=== PATIENT | female | born 1945 | race Caucasian/White ===

== ENCOUNTER → 2016-11-23 | Outpatient (CLI) | payer OTHER ==
[~2016-11-23] VITALS: Ht 165.1 cm; Wt 89.8 kg
[~2016-11-23] MED LIST: AMBIEN 10 MG TA10 MG PO; B COMPLEX-VITA1 EACH PO; B-COMPLEX PLUS1 EACH PO; CALCIUM 600 +1 EAC2 PO; CHANTIX1 MG PO; CRANBERRY400 MG PO; CYMBALTA60 MG PO; DESYREL100 MG PO; DESYREL50 MG PO; DICLOFENAC SODI75 MG PO; DOLOPHINE HCL5 MG PO; EFFEXOR XR37.5 MG PO; ENDOCET 7.5-321 EACH PO; FISH OIL 1,001000 M2 PO; FLEXERIL PO; FOSAMAX 70 MG T70 M1 PO; FOSAMAX 70 MG T70 MG; FOSAMAX 70 MG T70 MG PO; HAIR SKIN NAIL1 EACH PO; HYDROCODON-ACE1 EAC5 PO; HYDROCODON-ACE1 EAC7 PO; HYDROCODONE-AP1 EAC6 PO; LAMICTAL 25 MG25 M1 PO; LIPITOR10 MG PO; LISINOPRIL10 MG PO; MACRODANTIN50 MG PO; MAGOX 400400 MG PO; MELATONIN3 MG PO; METHADONE HCL5 MG PO; MOBIC15 MG PO; MS CONTIN15 MG PO; NEURONTIN 300300 M1 PO; NEURONTIN 300M300 M2 PO; NITROFURANTOIN50 M4 PO; NORCO 5-325 TA1 EACH PO; OS-CAL 500+D C1 EACH PO; PERCOCET 10-321 EACH PO; PERCOCET 5-3251 EACH PO; PERCOCET PO; PREMARIN0.625 MG PO; RELAFEN750 MG PO; REQUIP 1 MG TABL1 M1 PO; TAMSULOSIN HCL0.4 MG PO; TEGRETOL XR100 MG PO; TRAZODONE 150150 M1 PO; TRILEPTAL150 MG PO; VITAMIN B-12500 MCG PO; VITAMIN C + RO500 MG PO; VITAMIN D 5050000 I1 PO; VITAMIN D1000 UNI1 PO; VITAMIN D1000 UNIT PO; VITAMIN D10000 UNIT PO; VITAMIN E400 UNIT PO; VITCB500GO PO
--- NOTE | ~2016-11-23 | HPC ---
[facility] [place] [address] PAIN MANAGEMENT CONSULTATION Name: KATHERINE HOYOS Roderick [id number] Admission: 11/23/16 Attend Phys: Korey Sal DO Discharge: Date of : 46 Report #: [id number] THIS REPORT FOR: //name// CC: Ami Sal HISTORY OF PRESENT ILLNESS: The patient is a 70-year-old female well known to the pain clinic, typically treated for neuropathic pain, bipedal neuropathy, axial back pain, chronic pain syndrome, SI joint dysfunction requiring complex medication management. She was last seen 07/31/2016, continued on baseline medication. Last urine drug screen 12/16/2015 was positive for prescribed medications. She returns to pain clinic today, her pain impact score is 8/70. She has "75%" functional improvement with her current medication. She notes pain is primarily in the low back radiating into the buttocks, compatible with SI mediated pain. She rates her pain today 7 on a 0-10 visual analog scale, exacerbated with bending, vacuuming and standing, sharp chronic burning sensation. She does note medications assist with functional status. She is incidentally noting significant pruritus with erythematous rash on her back. I reconciled the medication list today, she has been on Lamotrigine (Lamictal) [address] Hwang. Of all of her medications, this is the most likely culprit, though the dose is not changed. I suggest she follow up with Dr. Hwang regarding that issue. I have continued the patient on Percocet 5/325 four a day, gabapentin 300 mg 1 in the morning, 1 at noon, 1 at midday, 2 at night and Requip 1 mg at noon and 2 at bedtime. Of note, these agents are typically associated with macular rash and pruritus. PHYSICAL EXAMINATION: Shows a 70-year-old female, BMI is 32.9 kilograms per meter squared. Vital signs stable as noted in the EMR. Rises from chair using armrest. Very tender over the SI joints. Positive Colleen test and Gaenslen's test bilaterally. Lower extremity strength is symmetric. Straight leg raise is negative. We reviewed the fact that opiate medications are being used to provide analgesia adequate to support activities of daily living, not attempting to achieve a specific pain score on the 0-10 Visual Analog Scale. The current opiate medications are providing sufficient analgesia to allow the patient to participate in activities of daily living. The patient is not exhibiting any aberrant behavior suggestive of drug diversion. The patient is not having any adverse reactions to medications. The patient is not suffering from daytime somnolence or mental acuity changes. The patient is managing opiate-induced constipation with appropriate eiph-nqr-ncuemfi agents and dietary considerations. The patient was counseled on concern for caution with operating a motor vehicle while using opiate medications. A physical exam was performed and the patient's functional status was evaluated. [address] [address] PAIN MANAGEMENT CONSULTATION Name: KATHERINE HOYOS Room #: REG ALE[facility] Avila#: [id number] Admission: 11/23/16 Attend Phys: Korey Sal DO Discharge: Date of : 46 Report #: [id number] All patients with back pain were advised against the bed rest greater than 4 days and were advised to return to normal activities. Pain score assessment was noted and the treatment plan was reviewed with the patient. All current medications, both prescribed and OTC were reviewed and reconciled on the electronic medical record. Tobacco screening was accomplished and smoking cessation was advised when indicated. BMI was noted and diet/exercise modification was recommended for all patients following outside normal parameters. I reviewed with the patient today their responsibilities to safeguard prescription medications, reviewed their responsibility to utilize medications only as prescribed by the physician. They are to seek and receive pain medications only from 1 physician group ( [facility]). They are to use 1 pharmacy and keep the clinic informed if they change pharmacies. Their responsibilities include making followup visits in a timely fashion and to avoid abrupt discontinuation of medication usage. Their responsibilities further include bringing their medications (bottles from the pharmacy with residual pills) to the visit for possible confirmation of pill counts and the patient understands it is their responsibility to submit to random drug screens to ensure both that the medications prescribed are present, and that no other controlled substances are present. All prescriptions provided today were generated electronically. 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 RECOMMENDATIONS: 1. SI joint injections under fluoroscopy today. 2. Continue baseline opiate analgesic including Percocet 5/325 up to 4 a day, taken the liberty of writing for 2 months of current medication. 3. Would continue Requip 1 mg in the afternoon and 2 at night, gabapentin 300 mg 1 tablet up to 5 times a day. 4. Follow with Dr. Hwang regarding rash and possible etiologic agent (Lamictal?). PROCEDURE NOTE: Bilateral SI joint injection under fluoroscopy. PROCEDURE NOTE: After written and informed consent was obtained including risk of infection, nerve trauma, increased pain and weakness, the patient wishes to proceed. The patient was taken to the fluoroscopy suite, placed in the prone position. The sacroiliac joint was visualized using the C-arm, turned in an oblique fashion to align the joint. The skin overlying the area was cleansed with ChloraPrep. Skin wheal with Xylocaine was raised. A 22 gauge spinal needle was inserted into the inferior aspect of the joint. A low volume extension tubing was then attached to the needle after the stylet was removed. Negative aspiration was accomplished. A 1 mL of Omnipaque was injected which [facility] [address] [place] [address] PAIN MANAGEMENT CONSULTATION Name: KATHERINE HOYOS Room #: REG [facility] [place]#: [id number] Admission: 11/23/16 Attend Phys: Korey Sal DO Discharge: Date of : 46 Report #: [id number] showed spread within the SI joint. 40 mg triamcinolone plus 2 mL of 0.5% preservative-free bupivacaine was injected into the joint. Needle was removed. Attention was then turned to the contralateral joint which was treated in an identical fashion. After both needles were removed the prep was washed off. Two Band-Aids were applied over the puncture sites. The patient was allowed to ambulate to the recovery room, monitored for an appropriate period of time, discharged in good and stable condition. By: [id number] Korey Sal DO /nt
[2016-11-23 12:51] VITALS: BP 138/74
== END ==
LOC: PAIN 06:12
DX: M53.3 Sacrococcygeal disorders, not elsewhere classified (principal); G58.8 Other specified mononeuropathies

== ENCOUNTER → 2017-01-18 | Outpatient (CLI) | payer OTHER ==
[~2017-01-18] VITALS: Ht 165.1 cm; Wt 90.7 kg
[~2017-01-18] MED LIST changes: +ANTIVERT25 MG PO
--- NOTE | ~2017-01-18 | HPC ---
[facility] [address] [place] [address] PAIN MANAGEMENT CONSULTATION Name: KATHERINE HOYOS Roderick [facility] [id number] Admission: 01/18/17 Attend Phys: Korey Sal DO Discharge: Date of : 46 Report #: [id number] THIS REPORT FOR: //name// CC: Ami Sal The patient is a 71-year-old female typically treated for axial back pain, bipedal neuropathy, component of SI mediated pain, had SI joint injections at last visit, unfortunately really nominal efficacy. She has continued with complex medication management, Percocet 7.5/325 three a day, gabapentin 300 mg 5 tablets a day, 1 t.i.d. with 2 at bedtime, and Requip 1 mg typically 1 in the morning and 2 at night. She returns to pain clinic today noting subjective pain score is 2 on a VAS. Notes; however, unfortunately the SI joint injection afforded poor relief. She is planning on traveling to [place] for a [place]. 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 PHYSICAL EXAMINATION: Shows a 71-year-old female, BMI is 33.3 kg/m2. Vital signs stable. Rises from chair using armrest. Gait is tandem. Diffuse tenderness across the low back. No discrete trigger points noted. Lower extremity strength is preserved. We reviewed the fact that opiate medications are being used to provide analgesia adequate to support activities of daily living, not attempting to achieve a specific pain score on the 0-10 Visual Analog Scale. The current opiate medications are providing sufficient analgesia to allow the patient to participate in activities of daily living. The patient is not exhibiting any aberrant behavior suggestive of drug diversion. The patient is not having any adverse reactions to medications. The patient is not suffering from daytime somnolence or mental acuity changes. The patient is managing opiate-induced constipation with appropriate mkyd-ore-pgptghv agents and dietary considerations. The patient was counseled on concern for caution with operating a motor vehicle while using opiate medications. A physical exam was performed and the patient's functional status was evaluated. All patients with back pain were advised against the bed rest greater than 4 days and were advised to return to normal activities. Pain score assessment was noted and the treatment plan was reviewed with the patient. All current medications, both prescribed and OTC were reviewed and reconciled on the electronic medical record. Tobacco screening was accomplished and smoking cessation was advised when indicated. BMI was noted and diet/exercise modification was recommended for all patients following outside normal parameters. [address] [address] PAIN MANAGEMENT CONSULTATION Name: KATHERINE HOYOS Room #: REG [facility] Avila#: [id number] Admission: 01/18/17 Attend Phys: Korey Sal DO Discharge: Date of : 46 Report #: [id number] I reviewed with the patient today their responsibilities to safeguard prescription medications, reviewed their responsibility to utilize medications only as prescribed by the physician. They are to seek and receive pain medications only from 1 physician group ( [facility]). They are to use 1 pharmacy and keep the clinic informed if they change pharmacies. Their responsibilities include making followup visits in a timely fashion and to avoid abrupt discontinuation of medication usage. Their responsibilities further include bringing their medications (bottles from the pharmacy with residual pills) to the visit for possible confirmation of pill counts and the patient understands it is their responsibility to submit to random drug screens to ensure both that the medications prescribed are present, and that no other controlled substances are present. All prescriptions provided today were generated electronically. ASSESSMENT: Lumbar radiculopathy, bipedal neuropathy, sacroiliac mediated pain, axial back pain, requiring complex medication management. RECOMMENDATIONS: Continue current medications unchanged, I have taken the liberty of writing for 2 months of current medication, followup at that time. Last urine drug screen was 12/16/2015. We will get a buccal swab at next visit. <ELECTRONICALLY SIGNED> By: Korey Sal DO 01/18/17 1427 [id number] [id number] Korey Sal DO /nt
[2017-01-18 10:46] VITALS: BP 113/81
== END | disposition home or self-care (01) ==
LOC: PAIN 07:27
DX: M54.16 Radiculopathy, lumbar region (principal); M53.3 Sacrococcygeal disorders, not elsewhere classified; G62.9 Polyneuropathy, unspecified; Z68.33 Body mass index [BMI] 33.0-33.9, adult; Z87.891 Personal history of nicotine dependence

== ENCOUNTER → 2017-01-28 | Outpatient (CLI) | payer OTHER ==
[~2017-01-28] VITALS: Ht 165.1 cm; Wt 90.1 kg
--- NOTE | ~2017-01-28 | HPC ---
[facility] [address] [place] [address] PAIN MANAGEMENT CONSULTATION Name: KATHERINE HOYOS Roderick Room #: REG [facility]#: [id number] Admission: 01/28/17 Attend Phys: Korey Sal DO Discharge: Date of : 46 Report #: [id number] THIS REPORT FOR: //name// CC: Ami Sal The patient is a pleasant 71-year-old female typically treated for axial back pain, SI joint dysfunction, lumbosacral spondylosis, neuropathic pain component. Last seen in the pain clinic 01/18/2017. She has done well with occasional SI joint injections, but it was a little confusing if it was the steroid or the local. I continued on Percocet 7.5/325 three a day at that visit, we continued gabapentin 300 mg 1 tablet 3 times a day with 2 at bedtime, ReQuip 1 mg 1 in the morning and 2 at night. Returns to pain clinic today for prior authorized left SI joint injection without steroid, diagnostic block. Incidentally buccal swab was accomplished today, no aberrant behavior suggestive for drug diversion, simply complying with opiate consent to treat contract. There are no other random studies noted in the chart. Physical exam shows a 71-year-old female, somewhat flat affect, ongoing pain in the left SI, positive Colleen test on the left. Positive Gaenslen's test. Diffuse tenderness in the left SI area. No pain with resistance to external rotation (negative piriformis). VAS score is 6-7/10. ASSESSMENT: Symptomatic sacroiliac joint dysfunction, left. DESCRIPTION OF PROCEDURE: After written informed consent was obtained, the patient was taken to fluoroscopy suite, placed in prone position. After sterile prep and drape, skin wheal was raised. A 22-gauge stylet needle was placed to contact the inferior aspect of left SI joint. A 0.5 mL of Omnipaque was injected, which highlighted the joints and followed with 1 mL of 0.5% preservative-free bupivacaine and 1 mL of 1.5% preservative-free Xylocaine. Needle was removed. The area was cleansed, Band-Aids applied. The patient monitored for an appropriate period of time as to record her VAS score hourly for the next 4 hours. I will have her call the nurse line and leave those reports. ADDENDUM: Patient called the RN phone line: reported pain score of 1/10 on discharge, but quickly had return of pain with activity; 11:30 1/10, 12:30 7/10, 13:30 6/10 and 14:30 7/10. Given that the diagnostic block was accomplished with a comination of bupivicaine and lidocaine, she should have had incremental relief for multiple hours. I believe that this is a negative diagnostic test; her initial pain relief was noted after sitting in the recliner; pain immediately returned with nominal activity (walking). We will have to look further for source of pain; lumbar radicular component? 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 Persisent multilevel llumbar spondylosis ...resulting in multilevel central spinal stenosis. There is mulitilevel mild neural foraminal stenosis." (01/29/17) vgj By: [id number] Korey Sal DO /ilya
[2017-01-28 10:32] VITALS: BP 116/60
== END ==
LOC: PAIN 06:52
DX: M53.3 Sacrococcygeal disorders, not elsewhere classified (principal); M54.5 Low back pain; M47.896 Other spondylosis, lumbar region; M79.2 Neuralgia and neuritis, unspecified; Z79.899 Other long term (current) drug therapy

== ENCOUNTER → 2017-02-11 | Outpatient (CLI) | payer OTHER ==
[~2017-02-11] VITALS: Ht 165.1 cm; Wt 90.4 kg
[~2017-02-11] MED LIST changes: +PERCOCET 7.5-31 EACH PO
--- NOTE | ~2017-02-11 | HPC ---
[facility] [place] [address] PAIN MANAGEMENT CONSULTATION Name: KATHERINE HOYOS Roderick [id number] Admission: 02/11/17 Attend Phys: Korey Sal DO Discharge: Date of : 46 Report #: [id number] THIS REPORT FOR: //name// CC: Ami Sal DATE OF SERVICE: 02/11/2017 The patient is a 71-year-old female, long known to the pain clinic. She has been treated for SI-mediated pain, lumbosacral spondylosis, neuropathic pain requiring complex medication management status post lumbar decompressive laminectomy. She returns to pain clinic today, she was seen for prolonged visit today, from 9:00 a.m. to 9:25. Ultimately taken to the fluoroscopy suite for procedure at 9:25. The patient has had SI joint injections, last was last visit on 01/28/2017. Prior 11/23/2016, 08/10/2016 and initially back in September 2015. They had afforded transient relief, but the last injection really afforded nominal relief. Returns to pain clinic today, she is tearful and frustrated. We continued opiate analgesics including Percocet 7.5 three times a day, gabapentin 300 mg t.i.d. plus 2 at bedtime, Requip 1 mg 1 tablet in the morning and 2 at night. Buccal swab at last visit was positive for prescribed medications. Pain impact score averages fairly high, it had been less in November, actually scoring 8/70, today it is up closer to 35/70 with functional status significantly being impacted by left low back pain. I had reviewed diagnostic findings at last visit after the SI joint injection, which we accomplished without benefit of steroid to specifically evaluate this pain generator. The patient noted really no improvement of pain following the procedure. She had a low pain score initially after the injection, but this was simply because she was sitting, as soon as she stood up the pain immediately recurred, left low back, buttock and posterior thigh. I reviewed the patient's CT myelogram from 2011 noting significant arachnoiditis, clubbing of the nerves. Today, she rates her pain 3, gets up to an 8 or 9 with activity on a VAS score. Notes pain is in the left hip, buttock sharp-aching pain, burning and shooting; exacerbated with any and all weight, bending, standing. PHYSICAL EXAMINATION: Shows 71-year-old female, somewhat frustrated and tearful. BMI is 33.2 kilograms per meter squared. Vital [place] [address] PAIN MANAGEMENT CONSULTATION Name: KATHERINE HOYOS Room #: REG [facility].#: [id number] Admission: 02/11/17 Attend Phys: Korey Sal DO Discharge: Date of : 47 Report #: [id number] noted in the EMR. Rises from chair using armrest. Modestly antalgic gait. Slight tenderness left low back, though no discrete trigger points noted. She does have slight decreased left plantar flexion strength and modestly positive straight leg raise on the left. ASSESSMENT: Symptomatic lumbar radiculopathy status post decompressive laminectomy, neuropathic pain with component of arachnoiditis, lumbosacral spondylosis, sacroiliac joint mediated pain, all requiring complex medication management. RECOMMENDATIONS: I have discussed with the patient. They have elected: 1. Continue Percocet 7.5/325 for ongoing pain (this is actually an increase from prior dose of 5/325). Continue gabapentin and Requip unchanged. 2. Lumbar epidural injection under fluoroscopy today at L5-S1. I did also enter into a conversation about spinal cord stimulator. Again, the patient has had prior surgery back in 2005. Does have arachnoiditis as a diagnosis in the CT myelogram from 2011, neuropathic pain component having failed conventional therapy. If the injection today does not afford adequate relief, we may consider spinal cord stimulator as possible therapeutic option. I spent a good deal of time today talking about suspected mechanism of action, details about spinal cord stimulator trial and ultimately implant if successful. We talked about high frequency spinal cord stimulator with a [place] [employer] device that is MRI compatible and will require less frequent battery charging (every 1-2 weeks rather than daily). ASSESSMENT: Neuropathic pain requiring complex medication management, sacroiliac joint pain, lumbosacral spondylosis status post decompressive lumbar laminectomy. RECOMMENDATIONS: 1. As noted above including consideration for spinal cord stimulator, medication changes (increase in Percocet), continuation of membrane stabilizing agent gabapentin and Requip. 2. Epidural injection under fluoroscopy today to help with radicular pain status post decompressive laminectomy. PROCEDURE: Lumbar epidural injection under fluoroscopy. PROCEDURE NOTE: After both written and informed consent to include risk of spinal cord damage, increased pain, weakness and [place] puncture, the patient was taken to the fluoroscopy suite, placed in the prone position. After sterile prep and drape, a skin wheal with lidocaine was raised. A 22-gauge epidural Tuohy needle was inserted in the midline at L5-S1 with good loss to resistance. Negative aspiration for cerebrospinal fluid or blood was noted. Then 1 mL of Omnipaque under biplanar fluoroscopy showed good spread within the epidural [address] [address] PAIN MANAGEMENT CONSULTATION Name: KATHERINE HOYOS Room #: [facility]#: [id number] Admission: 02/11/17 Attend Phys: Korey Sal DO Discharge: Date of : 46 Report #: [id number] space. This was followed with 80 mg of triamcinolone plus 1 mL of 1.5% preservative-free Xylocaine, 0.5 mL Xylocaine was then injected to flush the needle; it was removed. The patient was monitored for an appropriate period of time and discharged in good and stable condition. Fluoroscopy time was under 10 seconds. By: [id number] Korey Sal DO /nt
[2017-02-11 09:00] VITALS: BP 117/71
== END | disposition home or self-care (01) ==
LOC: PAIN 06:52
DX: M54.16 Radiculopathy, lumbar region (principal); G89.29 Other chronic pain; M47.897 Other spondylosis, lumbosacral region; G03.9 Meningitis, unspecified; M53.3 Sacrococcygeal disorders, not elsewhere classified; Z98.890 Other specified postprocedural states; Z79.891 Long term (current) use of opiate analgesic; Z87.891 Personal history of nicotine dependence; Z88.8 Allergy status to other drugs, medicaments and biological substances; Z88.2 Allergy status to sulfonamides

== ENCOUNTER → 2017-03-18 | Outpatient (CLI) | payer OTHER ==
[~2017-03-18] VITALS: Ht 165.1 cm; Wt 93.0 kg
--- NOTE | ~2017-03-18 | HPC ---
[facility] [address] [place] [address] PAIN MANAGEMENT CONSULTATION Name: KATHERINE HOYOS Roderick [id number] Admission: 03/18/17 Attend Phys: Korey Sal DO Discharge: Date of : 47 Report #: [id number] THIS REPORT FOR: //name// CC: Ami Sal The patient is a 71-year-old female, well known to the pain clinic, typically treated for lumbar spondylosis, she is status post decompressive lumbar laminectomy, requires high risk complex medication management, neuropathic pain, component of SI joint dysfunction. Last seen in the pain clinic 02/11/2017. We had tried multiple SI joint injections with all dwindling efficacy. At last visit, we reviewed the patient's medical status. She was having ongoing pain across the low back radiating into the posterior buttock. Reviewed MRI findings noting arachnoiditis and clumping of the lumbar nerve roots. The patient has ongoing neurogenic claudication symptoms with pain exacerbated to the low back and posterior buttocks. Epidural injection did afford good relief of symptoms, yet incremental relief. The patient specifically reports 90% relief for 1 month, the pain is beginning to recur. Pain VAS score is 3 presently. This is with Percocet 7.5/325 up to 4 a day (increased from 5/325 at last visit). Continued on gabapentin 300 mg 1 in the morning and 2 at night and Requip 1 mg tablets t.i.d. with 2 tabs at bedtime. Uses diclofenac b.i.d. He returns to pain clinic today noting pain is exacerbated with standing, leaning over the table cutting sewing patterns, if she stands for greater than 5 minutes, the pain becomes exquisite. Pain is primarily in the left gluteal area, SI area, posterior buttock. If she bends to pick an object off of the floor, pain is problematic as well. Having failed all conservative therapies including physical therapy, interventional injections, SI joints and epidural injection; having failed core stabilization physical therapy, status post lumbar decompressive laminectomy, not a surgical candidate at this time. She has failed membrane stabilizing agents (gabapentin), nonsteroidal anti-inflammatory agents (diclofenac p.o.), opiate analgesics (oxycodone), I think the patient would be a good candidate for spinal cord stimulator. We talked about stimulation today including postulated mechanism of action. The patient is enthusiastic about moving forward. She has been quite tearful at last visit with just ongoing frustration from pain. She tells me today that she does have surgery scheduled 04/07/2017, rectocele and cystocele repair with a bladder suspension. We may be able to trial stimulator sometime after that surgery, perhaps late April with anticipation of implantation early in the year if successful. [address] [address] PAIN MANAGEMENT CONSULTATION Name: KATHERINE HOYOS Room #: REG [facility] Avila#: [id number] Admission: 03/18/17 Attend Phys: Korey Sal DO Discharge: Date of : 47 Report #: [id number] PHYSICAL EXAMINATION: Otherwise unchanged 71-year-old female, BMI is 34.1 kg/m2. Blood pressure 121/72, pulse 79, respirations of 15. Rises from chair using armrest. Modestly antalgic gait, diffuse tenderness across the low back, again, standing and walking for any period of time exacerbates pain, primarily left low back, gluteus and posterior thigh. Lower extremity strength shows modest decreased strength in the lower extremity hip flexion on the left side. We reviewed the fact that opiate medications are being used to provide analgesia adequate to support activities of daily living, not attempting to achieve a specific pain score on the 0-10 Visual Analog Scale. The current opiate medications are providing sufficient analgesia to allow the patient to participate in activities of daily living. The patient is not exhibiting any aberrant behavior suggestive of drug diversion. The patient is not having any adverse reactions to medications. The patient is not suffering from daytime somnolence or mental acuity changes. The patient is managing opiate-induced constipation with appropriate [id number] agents and dietary considerations. The patient was counseled on concern for caution with operating a motor vehicle while using opiate medications. A physical exam was performed and the patient's functional status was evaluated. All patients with back pain were advised against the bed rest greater than 4 days and were advised to return to normal activities. Pain score assessment was noted and the treatment plan was reviewed with the patient. All current medications, both prescribed and OTC were reviewed and reconciled on the electronic medical record. Tobacco screening was accomplished and smoking cessation was advised when indicated. BMI was noted and diet/exercise modification was recommended for all patients following outside normal parameters. I reviewed with the patient today their responsibilities to safeguard prescription medications, reviewed their responsibility to utilize medications only as prescribed by the physician. They are to seek and receive pain medications only from 1 physician group ( [facility]). They are to use 1 pharmacy and keep the clinic informed if they change pharmacies. Their responsibilities include making followup visits in a timely fashion and to avoid abrupt discontinuation of medication usage. Their responsibilities further include bringing their medications (bottles from the pharmacy with residual pills) to the visit for possible confirmation of pill counts and the patient understands it is their responsibility to submit to random drug screens to ensure both that the medications prescribed are present, and that no other controlled substances are present. All prescriptions provided today were generated electronically. ASSESSMENT: Symptomatic lumbar radiculopathy status post decompressive laminectomy, arachnoiditis, neuropathic pain, sacroiliac joint pain and lumbosacral spondylosis. [address] [address] PAIN MANAGEMENT CONSULTATION Name: KATHERINE HOYOS Roderick Room #: [facility] [id number] Admission: 03/18/17 Attend Phys: Korey Sal DO Discharge: Date of : 47 Report #: [id number] RECOMMENDATIONS: 1. Continue Percocet 7.5/325 up to 3 a day, I have taken the liberty of renewing this prescription for 2 months. 2. We will seek authorization for spinal cord stimulator trial. We talked about using the Nevro spinal cord stimulator with high frequency stimulation and good objective medical literature noting efficacy for arachnoiditis. The patient discharged in good and stable condition after prolonged visit, greater than 25 minutes was spent counseling the patient regarding therapeutic options, discussing risks, benefits of proposed therapies. Follow up in 2 months for reevaluation and medication management. The patient was given psychological evaluation contacts for psychologic evaluations required by Medicare. <ELECTRONICALLY SIGNED> By: Korey Sal DO 03/22/17 [id number] Korey Sal, DO /nt
[2017-03-18 12:27] VITALS: BP 121/72
== END | disposition home or self-care (01) ==
LOC: PAIN 06:35
DX: M54.16 Radiculopathy, lumbar region (principal); M53.3 Sacrococcygeal disorders, not elsewhere classified; G89.29 Other chronic pain; G03.9 Meningitis, unspecified; Z87.891 Personal history of nicotine dependence; Z79.891 Long term (current) use of opiate analgesic; Z88.1 Allergy status to other antibiotic agents; Z88.2 Allergy status to sulfonamides; Z88.5 Allergy status to narcotic agent; Z88.6 Allergy status to analgesic agent; Z88.8 Allergy status to other drugs, medicaments and biological substances